=== PATIENT | male | born 1980 | race Caucasian/White ===

== ENCOUNTER 2022-01-22 12:01 | Emergency (ER) | payer MEDICAID ==
[2022-01-22 12:40] LABS: HEMOGLOBIN 12.8 gm/dl (14.0-17.5); RED BLOOD COUNT 4.46 M/UL (4.20-5.50); WHITE BLOOD COUNT 4.6 K/UL (4.5-11.0)
[2022-01-22 13:03] LABS: BUN/CREATININE RATIO 19 (0-10)
[2022-01-22] MEDS ORDERED: LEVOTHYROXINE75 MC1 PO (14:04)
== END 2022-01-22 14:50 | disposition home or self-care (01) ==
LOC: ER1 12:01
PROVIDERS: Physician Assistant
DX: E03.9 Hypothyroidism, unspecified (principal); F17.210 Nicotine dependence, cigarettes, uncomplicated
CPT/HCPCS: 70450; 71045; 80053; 80307; 81001; 82550; 82553; 82962; 84439; 84443; 84484; 85025; 93005; 99285; J7030